=== PATIENT | male | born 1965 | race Caucasian/White ===

== ENCOUNTER 2016-05-11 19:13 | Emergency (ER) | payer BC ==
[~2016-05-11 19:13] MED LIST: AMERINET CHOICE1 PD4 IV; AQUACEL1 EACH; ASPIRIN E.C. 8181 MG PO; DIABETA 5MG5 MG/TAB; DIABETA 5MG5 MG/TAB PO; GLUCOPHAGE1000 MG; HYDROCHLOROTHIA1 T14; PHARMASSURE MA500 MG PO; QUALITY CHOICE1 T26 PO; [UNRECOGNIZED DRUG - OTHER] TP
[2016-05-11] MEDS ORDERED: PREDNISONE20 M1 PO ×2 (20:57→20:59)
[2016-05-11] MEDS ORDERED: AZITHROMYCIN500 M2 PO ×2 (20:57→20:59)
[2016-05-11] MEDS ORDERED: PROAIR HFA0.09 MG/AC IH (20:57)
== END 2016-05-11 21:19 | disposition home or self-care (01) ==
LOC: ED 19:13
DX: J44.1 Chronic obstructive pulmonary disease with (acute) exacerbation (principal); J00 Acute nasopharyngitis [common cold]; Z87.891 Personal history of nicotine dependence
CPT/HCPCS: J2930

== ENCOUNTER 2016-09-27 15:24 | Emergency (ER) | payer BC ==
[~2016-09-27] VITALS: Ht 180.3 cm; Wt 169.5 kg
[~2016-09-27 15:24] MED LIST changes: +AZITHROMYCIN500 M2 PO; +PREDNISONE20 M1 PO; +PROAIR HFA0.09 MG/AC IH
[2016-09-27] MEDS ORDERED: VICTOZA 3-0.6 MG/0.1 SC (17:47)
[2016-09-27] MEDS ORDERED: LEVEMIR100 U/M1 SQ (17:47)
[2016-09-27] MEDS ORDERED: LEVAQUIN 5500 MG/TA1 PO (19:42)
[2016-09-27 19:50] VITALS: BP 137/90
== END 2016-09-27 19:50 | disposition home or self-care (01) ==
LOC: ED 15:24
DX: R50.9 Fever, unspecified (principal); E86.9 Volume depletion, unspecified; I10 Essential (primary) hypertension; E78.5 Hyperlipidemia, unspecified; Z87.891 Personal history of nicotine dependence; E66.01 Morbid (severe) obesity due to excess calories; Z68.43 Body mass index [BMI] 50.0-59.9, adult; Z79.84 Long term (current) use of oral hypoglycemic drugs; I83.015 Varicose veins of right lower extremity with ulcer other part of foot; L97.519 Non-pressure chronic ulcer of other part of right foot with unspecified severity; I45.10 Unspecified right bundle-branch block; E11.42 Type 2 diabetes mellitus with diabetic polyneuropathy
CPT/HCPCS: J0696; J7030

== ENCOUNTER 2016-09-28 21:31 | Outpatient (RCR) | payer BC ==
[~2016-09-28] VITALS: Ht 180.3 cm; Wt 169.5 kg
[~2016-09-28 21:31] MED LIST changes: +LEVAQUIN 5500 MG/TA1 PO; +LEVEMIR100 U/M1 SQ; +VICTOZA 3-0.6 MG/0.1 SC
[2016-09-28 22:00] VITALS: BP 105/57
[2016-09-29 00:20] VITALS: BP 110/64
[2016-09-29 10:30] VITALS: BP 96/56
[2016-09-29 10:45] VITALS: BP 101/53
[2016-09-29] MEDS ORDERED: LISINOPRIL AND1 TA1 PO (15:14)
[2016-09-29] MEDS ORDERED: METFORMIN HYD1000 MG PO (15:17)
[2016-09-29] MEDS ORDERED: ATORVASTATIN CA40 MG PO (15:21)
[2016-09-29] MEDS ORDERED: CARVEDILOL3.125 MG PO (15:25)
[2016-09-29] MEDS ORDERED: [UNRECOGNIZED DRUG - OTHER] MC (15:35)
[2016-09-29] MEDS ORDERED: LEVEMIR FLEX100 U/ML SQ (15:36)
== END 2016-12-27 | disposition home or self-care (01) ==
LOC: AMSURD
DX: E11.621 Type 2 diabetes mellitus with foot ulcer (principal); L97.519 Non-pressure chronic ulcer of other part of right foot with unspecified severity; A41.81 Sepsis due to Enterococcus; A41.01 Sepsis due to Methicillin susceptible Staphylococcus aureus; R65.20 Severe sepsis without septic shock; Z48.00 Encounter for change or removal of nonsurgical wound dressing
CPT/HCPCS: J3370; J7050

== ENCOUNTER 2016-09-29 10:58 | Inpatient (IN) | payer BC ==
[~2016-09-29] VITALS: Ht 180.3 cm; Wt 175.5 kg
[2016-09-29] VITALS (12 sets, daily range): BP systolic 102–154; BP diastolic 56–96
--- NOTE | 2016-09-29 14:30 | NUR ---
PT ADMITTED TO OBS ROOM 203 VIA AMBULATION FROM ED. 20GA INSYTE IN Lt AC AND RIGHT HAND UPON ARRIVAL FROM ED. IV INFUSION OF NS STARTED AT 125ML/H. PT DENIES PAIN AT THIS TIME STATES HE IS FEELING BETTER THEN HE HAD BEEN. MOTHER BRINGS UP CPAP. WOUND NOTED TO BOTTOM RIGHT FOOT, COVERED WITH GAUZE DRESSING. MISSING SECOND TOE ON THE RIGHT FOOT. SCAB NOTED TO AREA OF RIGHT FOOT WHERE THE TOE IS GONE. PT IS AOX3, LUNGS CTA, HEART SOUNDS REGULAR, AP 88BPM, BOWEL SOUND PRESENT X4. +1 PITTING EDEMA NOTED TO BLE. PT DENIES ANY NEEDS AT THIS TIME, CALL LIGHT IN REACH. WILL CONTINUE TO MONITOR.
[2016-09-29] MEDS ORDERED: LISINOPRIL AND1 TA1 PO (15:14)
[2016-09-29] MEDS ORDERED: METFORMIN HYD1000 MG PO (15:17)
[2016-09-29] MEDS ORDERED: ATORVASTATIN CA40 MG PO (15:21)
[2016-09-29] MEDS ORDERED: CARVEDILOL3.125 MG PO (15:25)
[2016-09-29] MEDS ORDERED: [UNRECOGNIZED DRUG - OTHER] MC (15:35)
[2016-09-29] MEDS ORDERED: LEVEMIR FLEX100 U/ML SQ (15:36)
--- NOTE | 2016-09-29 19:26 | NUR ---
PT RESTING IN BED AT THIS TIME. MOTHER WILL BRING PT'S PILLS UP FOR HIM TONIGHT. STATES HE IS FEELING BETTER AT THIS TIME. VITALYO INFUSING WITHOUT DIFFICULTY WILL CONTINUE TO MONITOR.
--- NOTE | 2016-09-29 19:45 | NUR ---
REPORT RECEIVED FROM Eriberto LORENZANARN
--- NOTE | 2016-09-29 20:00 | NUR ---
PATIENT LYING IN BED WITH HEAD OF BED ELEVATED. SHIFT ASSESSMENT COMPLETE. PATIENT ALERT AND ORIENTED X4. DENIES ANY PAIN OR DISCOMFORTS AT THIS TIME. DENIES SHORTNESS OF BREATH OR DIFFICULTIES BREATHING. PATIENT TACHYCARDIC. HEART RATE REGULAR. PATIENT REPORTS FEELING BETTER BUT FEELS "A LITTLE FEVERISH". PATIENT'S TEMPERATURE AT 1931 100.6. PATIENT FLUSHED. PATIENT HAS GAUZE DRESSING TO WOUND ON BOTTOM OF RIGHT FOOT. DRESSING CDI. PATIENT'S IV INFUSING AT 250 MLS/HR PER ORDER. PATIENT INDEPENDENT IN ROOM. PATIENT'S CALL LIGHT WITHIN REACH.
--- NOTE | 2016-09-29 21:15 | NUR ---
KP COOPER IN PATIENT'S ROOM GETTING VITAL SIGNS. OPERATIONS LOGISTICS ANALYST REPORTS PATIENT'S SP02 79% WHEN FIRST PUTTING MONITOR ON PATIENT. PATIENT SAT UP IN BED. SP02 INCREASED TO 86-88% ON ROOM AIR. HEART RATE 135. TEMP 101.2. PATIENT STATES TO THIS NURSE "I WAS KIND OF DOZING OFF A LITTLE BIT BEFORE SHE CAME IN". OPERATIONS LOGISTICS ANALYST REPORTS PATIENT WAS AWAKE WHEN WALKING INTO ROOM AND THAT PATIENT REPORTED TO OPERATIONS LOGISTICS ANALYST THAT HE WAS AWAKE BEFORE COMING INTO ROOM. PATIENT PLACED ON 2L O2 VIA NASAL CANNULA. SP02 UP TO 94%. Jewel SCHAEFFER AT PATIENT'S BEDSIDE. ORDER RECEIVED TO GIVE 1L NORMAL SALINE AT 1000 MLS/HR. DO HOURLY VITALS ON PATIENT. PATIENT ENCOURAGED TO PUT ON CPAP AT THIS TIME. PATIENT REFUSED. REPORTS THAT HE DOES NOT GO TO BED UNTIL 2300 USUALLY. WILL CONTINUE TO MONITOR PATIENT.
--- NOTE | 2016-09-29 22:11 | NUR ---
PATIENT PLACED ON TELEMETRY AND CONTINUOUS SP02 MONITORING PER ORDER. PATIENT'S SP02 87% ON 2L PER MONITOR. OXYGEN INCREASED TO 3L.PATIENT'S SP02 UP TO 94% OM 3L. HEART RATE 135. PATIENT DENIES SHORTNESS OF BREATH BUT RESPIRATIONS APPEAR LABORED. Jewel SCHAEFFER IN PATIENT'S ROOM.
--- NOTE | 2016-09-29 22:40 | NUR ---
PATIENT GIVEN ORDERED LEVEMIRE,LEVAQUIN, AND COREG AT THIS TIME. PLACED ON CPAP MACHINE. ON OXYGEN VIA NASAL CANNULA AT 3L.HEART RATE REMAINS IN THE 130'S. WILL CONTINUE TO MONITOR PATIENT.
--- NOTE | 2016-09-29 22:45 | NUR ---
2ND BAG OF NORMAL SALINE 1000 ML BOLUS STARTED AT THIS TIME PER Jewel HANNON'S ORDERS.
--- NOTE | 2016-09-29 22:51 | NUR ---
LABETOLOL 10 MG IV ADMINISTERED AT THIS TIME. HEART RATE DOWN TO 120-122.
[2016-09-30] VITALS (10 sets, daily range): BP systolic 96–180; BP diastolic 63–114
--- NOTE | 2016-09-30 00:10 | NUR ---
PATIENT UP TO BATHROOM. REMOVED OXYGEN WHILE GETTING UP. SP02 DROPPED DOWN TO 77% WHILE UP TO BATHROOM. PATIENT STATED "THAT TIME I DID FEEL A LITTLE WINDED" PATIENT PLACED BACK ON OXYGEN VIA NASAL CANNULA. SP02 BACK UP TO LOW 90'S. PATIENT ASKED THIS NURSE "DO I HAVE TO PUT MY CPAP BACK ON" PATIENT TOLD THAT IT WAS DOCTORS ORDERS TO HAVE IT ON AND THAT HE NEEDED TO WEAR OXYGEN NEXT TIME HE GOT UP TO BATHROOM. PATIENT VERBALIZED UNDERSTANDING. ASSISTED WITH PUTTING CPAP MACHINE BACK ON. HEART RATE 118. WILL CONTINUE TO MONITOR PATIENT.
--- NOTE | 2016-09-30 06:11 | NUR ---
PER REPORT FROM Jewel SCHAEFFER APRN PATIENT'S SP02 DOWN TO 81%. REPORTED THAT PATIENT LYING IN BED RESTING WITH CPAP ON. Jewel SCHAEFFER INCREASED OXYGEN TO 5l VIA NASAL CANNULA. SP02 92% ON 5L. HEART RATE 104 PER RN UNIT MANAGER.
--- NOTE | 2016-09-30 07:26 | NUR ---
REPORT GIVEN TO PARI MOFFETT
--- NOTE | 2016-09-30 08:00 | NUR ---
PT IN BED RESTING AT THIS TIME, O2 IS 97% ON 5L O2 VIA NC, PT STATES HE "FEELS FINE" AND IS REQUESTING TO PLEASE BE DC'D BY THURSDAY HE HAS A CLASS IN [place] HE MUST ATTEND FOR WORK, PT EDUCATED ON CURRENT HEALTH STATUS AND ADMISSION, PT IS PLEASANT AND COOPERATIVE, STATES HE IS FEELING MUCH BETTER, STATES HE GETS SOB WHEN SITTING UP, HOWEVER PT'S O2 DECREASED TO 3L AND PT IMMEDIATELY DESATURATED TO 86%-86%, WILL REMAIN ON 5L AT THIS TIME, COMPLEX ASSESSMENT COMPLETED AND CHARTED, PT DENIES PAIN OR NEEDS, WILL CONTINUE TO MONITOR TELE AND O2 VIA MONITOR AT THE NURSES STATION
--- NOTE | 2016-09-30 08:10 | NUR ---
PT CONCERNED ABOUT FOOT WOUND, STATES HE HAD AN APPT TODAY BUT HE IS GOING TO CALL AND CANCEL IT IF WE WONT "LET HIM OUT TODAY", PT EDUCATED THAT HE CAN NOT BE SAFELY DC'D YET DUE TO HIS HEALTH STATUS, DRY DRESSING TO LEFT SOLE OF FOOT REMOVED TO VIEW WOUND, WOUND IS DRY, WITH MINIMAL PURULENT DRAINAGE NOTED TO WOUND BED, DRESSING IS CLEAN AND DRY AND REPLACED AT THIS TIME, PT HAS BEEN GETTING OUTPATIENT ANTIBIOTICS FOR WOUND, WOUND SIZE IS APPROXIMATELY THE SIZE OF A HALF DOLLAR WITH CRUSTED DRY EDGES, CALLOUSED APPEARANCE, PAIN NOTED AT SIDE, BLE EDEMATOUS AND DISCOLORED, WILL CONTINUE TO MONITOR WOUND AND ADMINISTER IV ANTIBIOTICS, PT STATES HE CANCELLED HIS PODIATRY APPT IN [place] VIA HIS OWN PERSONAL CELL PHONE AND ENSURE STAFF THAT NO FURTHER CALLS ARE NECESSARY AT THIS TIME
--- NOTE | 2016-09-30 10:00 | NUR ---
WHIT AT PT'S BEDSIDE DISCUSSING HEALTH STATUS AND POSSIBLE DC LATER THIS WEEK PER PT REQUEST, PT EDUCATED THAT HIS O2 DROPS IMMEDIATELY STILL IF HE IS ON LESS THAN 5L O2 SUPPORT AND THAT THIS IS NOT "STABLE" FOR THIS PT AT THIS TIME, IV VANCO CONTINUED Q8 HOURS, DISCUSS POSSIBLE DC LATER THIS WEEK BUT NO GUARANTEES AT THIS TIME, VANC TROUGH TO BE DRAWN SHORTLY, WILL CONTINUE TO MONITOR PATIENT
--- NOTE | 2016-09-30 10:41 | NUR ---
pharmacy notified at this time to draw patients vanc trough prior to this dose, Rufino states he will be here shortly
--- NOTE | 2016-09-30 13:22 | NUR ---
PT ADMITTED ACUTE FROM OBS STATUS AT THIS TIME, WILL REMAIN IN ROOM #203 WITH CURRENT ORDERS
--- NOTE | 2016-09-30 14:52 | NUR ---
NS RATE DECREASED TO 75ML/HR AT THIS TIME
--- NOTE | 2016-09-30 16:00 | NUR ---
CALL TO AT THIS TIME WHO IS CURRENTLY TREATING PT'S FOOT WOUND FOR DRESSING CHANGE RECOMMENDATIONS DURING PT'S STAY HERE, RECOMMENDS SILVADENE CREAM TO THE OPEN WOUND BED WITH PURULENT DRAINAGE, ZINC BARRIER CREAM AROUND THE CALLOUSED AREA, AND COVER WITH GAUZE AND TAPE, CHANGE DAILY, WHIT NOTIFIED OF RECOMMENDATIONS
--- NOTE | 2016-09-30 16:29 | NUR ---
FOOT XRAY RESULTS SHOW OSTEOMYELITIS, PENDING TRANSFER AT THIS TIME PER J.HARI
--- NOTE | 2016-09-30 16:55 | NUR ---
WHIT DISCUSSING PT'S CURRENT OSTEOMYELITIS FINDING AND SAFE TRANSFR/CONTINUITY OF CARE OPTIONS WITH IN [place], IS GOING TO HAVE A HOSPITALIST FROM [facility] CALL TO DISCUSS TRANSFER WITH WHIT
--- NOTE | 2016-09-30 18:00 | NUR ---
ALLISON AT [facility] THE AIRPLANE PILOT SUPERVISOR STATES PT IS ACCEPTED TO ROOM #224 AND PROVIDES THE NUMBER FOR NURSE TO NURSE REPORT, [facility] STATES THEY WILL BE HERE IN APPROX. 30 MINUTES TO TRANSFER THIS PT TO [facility], WILL NOTIFY PT OF THIS INFORMATION
--- NOTE | 2016-09-30 18:18 | NUR ---
ALL BELONGINGS INCLUDING WALLET, KEYS, COMPUTER, CHARGERS, CPAP/MASK, HOME MEDICATIONS, AND OTHER PERSONAL BELONGINGS PACKED UP TO SEND WITH PT TO [facility], PT'S MOTHER JON NOTIFIED AT THIS TIME THAT PT IS TRANSFERRING AND EDUCATED ON WHERE HE WILL BE BEING TRANFERRED TO THIS EVENING, SHE HAD NO FURTHER QUESTIONS OR CONCERNS
--- NOTE | 2016-09-30 18:45 | NUR ---
REPORT GIVEN TO NURSE CLEMENTE,RN AT [facility], NOTIFIED THAT PT SHOULD BE LEAVING HERE IN THE NEXT 30 MINUTES, CALLBACK NUMBER PROVIDED, NO FURTHER QUESTIONS REGARDING PATIENT HEALTH STATUS BETWEEN TRANSFERRING AND ACCEPTING FACILITY AT THIS TIME, [facility] SHOULD BE ARRIVING SHORTLY
--- NOTE | 2016-09-30 19:03 | NUR ---
PT TRANSFERRED VIA [facility] TO [facility] AT THIS TIME, STABLE CONDITION, BREATHING ON 5L 02 VIA [place], ALL BELONGINGS AND HOME MEDS SENT WITH PT, ALL APPROPRIATE PAPERWORK SENT WITH EMS, NO FURTHER QUESTIONS OR CONCERNS NOTED AT THIS TIME
--- NOTE | 2016-10-01 16:40 | NUR ---
Faxed wound cx results to [facility] nurses station. ([phone])
== END 2016-09-30 19:03 | disposition short-term general hospital (02) | DRG 872 ==
LOC: ED 10:58 → MED/SURG 12:35 → ED 12:35 → MED/SURG 12:35
PROVIDERS: ADMIT Nurse Practitioner Primary Care
DX: A41.01 Sepsis due to Methicillin susceptible Staphylococcus aureus (principal); Z68.43 Body mass index [BMI] 50.0-59.9, adult; J80 Acute respiratory distress syndrome; M86.171 Other acute osteomyelitis, right ankle and foot; M86.671 Other chronic osteomyelitis, right ankle and foot; E11.621 Type 2 diabetes mellitus with foot ulcer; E87.70 Fluid overload, unspecified; R65.20 Severe sepsis without septic shock; E11.40 Type 2 diabetes mellitus with diabetic neuropathy, unspecified; E66.01 Morbid (severe) obesity due to excess calories; I10 Essential (primary) hypertension; E11.69 Type 2 diabetes mellitus with other specified complication; Z79.4 Long term (current) use of insulin; Z89.421 Acquired absence of other right toe(s)
CPT/HCPCS: G0378; J1650; J1815; J1940; J3370; J7030; J7050